=== PATIENT | male | born 1955 | race Caucasian/White ===

== ENCOUNTER 2018-07-10 07:03 | Observation (INO) | payer OTHER ==
[2018-07-10] MEDS ORDERED: FAMOTIDINE 20 MG TAB PO ONE (07:07)
[2018-07-10] MEDS ORDERED: NS 1,000 ML IV ONE (07:07)
[2018-07-10] MEDS ORDERED: DIAZEPAM 5 MG TAB PO ONE (07:07)
[2018-07-10] MEDS ORDERED: ASPIRIN EC 325 MG TAB PO ONE (07:07)
[2018-07-10] MEDS ORDERED: diphenhydrAMINE 25 MG CAP PO ONE (07:07)
[2018-07-10 07:45] LABS: PLATELET COUNT 276 10^3/uL (150-400)
[2018-07-10 07:53] LABS: INR 0.98 (0.83-1.16); PROTIME(PATIENT) 13.2 SEC (12.0-15.0)
--- NOTE | 2018-07-10 10:28 | CPEKG ---
Test Reason : OPEN Blood Pressure : / mmHG Vent. Rate : 051 BPM Atrial Rate : 052 BPM P-R Int : 184 ms QRS Dur : 100 ms QT Int : 441 ms P-R-T Axes : 024 022 017 degrees QTc Int : 407 ms Sinus rhythm Confirmed by Rojelio Handy ([id number]) on 07/10/2018 10:27:22 AM Referred By: Confirmed By:Rojelio Handy
[2018-07-10] MEDS ORDERED: fentaNYL 100 MCG/2 ML INJ ONE ×2 (11:40→12:48)
[2018-07-10] MEDS ORDERED: LIDOCAINE 1% 300 MG/30 ML SDV ONE (11:40)
[2018-07-10] MEDS ORDERED: MIDAZOLAM 2 MG/2 ML VIAL ONE ×2 (11:41→12:48)
[2018-07-10] MEDS ORDERED: IOPAMIDOL (ISOVUE-370) 150 ML BTL IV ONE (11:41)
--- NOTE | 2018-07-10 12:01 | PDHPUP ---
History & Physical Update H&P update statement: This history and physical update is based on an assessment of the patient which was completed after admission or registration (within 24 hours), but prior to the surgery/procedure. H&P update: H&P reviewed & patient examined, no change in patient's condition since H&P completed
--- NOTE | 2018-07-10 12:01 | PDPROPOC ---
Sedation Plan of Care Sedation Plan of Care: vital signs stable, mental status noted, patient educated of risks, benefits, alternatives, patient can tolerate sedation ASA Classification: ASA 2 Planned drugs: fentanyl, midazolam Mallampati Score: Class 2 Mallampati Reference Image: Patient passed 3-3-2 rule?: Yes
[2018-07-10] MEDS ORDERED: BIVALIRUDIN 250 MG/5 ML VIAL IV ONE (12:24)
[2018-07-10] MEDS ORDERED: ATROPINE SULFATE 1 MG/10 ML SYR ONE (13:00)
--- NOTE | 2018-07-10 13:10 | PDDXCAT ---
Diagnostic Cath Note - . Date: 07/10/18 Neurocritical Care Physician: Kit Indication: other (intermediate risk stress test) - Procedure Access: right groin Procedure: coronary angiography - Materials Left Heart Cath size: 6F Left Heart Cath materials: JL4.0, JR4.0 - Findings-Left Heart Catheterization LCX: The circumflex is 2.75mm in size. There is an 80% stenosis in the mid portion of the vessel. RCA: The right coronary artery is 3.5mm in size and dominant vessel. There is 70 % stenosis in the mid section of the vessel. Complications: NONE Estimated blood loss: <50ml Closure method: Angioseal Assessment: The patient had an angiogram performed by Dr. Mullen and was found to have a 70% lesion in his right coronary artery and a 80% stenosis in the mid circumflex. Plan: Aspirin 81mg along with Plavix 75mg daily should be continued for at least 1 year following drug eluting stent implantation. No elective surgery for the first 3 months. Decisions to stop dual antiplatelet therapy before 1 year should involve our office at [facility] phone [phone]. Intervention: A 6 [place] JL4 guiding catheter was used for guide catheter support. A 0.014" 185 cm Intuition Wire was advanced across the lesion in question under direct fluoroscopic and angiographic guidance. A 3.0 x 12mm Emerge balloon was advanced over the lesion in the proximal RCA and was stented with a 3.5 x 28mm Synergy drug eluting stent using a 6 [place] guide liner catheter. There was 10% residual post stent implantation with SAMI III flow. There was an 80% stenosis of the mid circumflex was stented with a 2.75 x 16mm Synergy drug eluting stent. There was 5% residual stenosis post stent implantation with SAMI III flow.
[2018-07-10] MEDS ORDERED: PRASUGREL HCL 10 MG TAB ONE (13:32)
[2018-07-10] MEDS ORDERED: NITROGLYCERIN 0.4 MG BTL SL PRN (13:46)
[2018-07-10] MEDS ORDERED: ATROPINE SULFATE 1 MG/10 ML SYR IVP PRN (13:46)
[2018-07-10] MEDS ORDERED: LORazepam 2 MG/ML INJ IVP PRN (13:46)
[2018-07-10] MEDS ORDERED: ONDANSETRON 4 MG/2 ML VIAL IVP PRN (13:46)
[2018-07-10] MEDS ORDERED: HYDROCODONE/APAP 5/325 TAB PO PRN (13:46)
[2018-07-10] MEDS ORDERED: TEMAZEPAM 15 MG CAP PO PRN (13:46)
[2018-07-10] MEDS ORDERED: OXYCODONE/APAP 5/325 TAB PO PRN (13:46)
[2018-07-10] MEDS ORDERED: PRASUGREL HCL 10 MG TAB PO ONE (13:46)
[2018-07-10] MEDS ORDERED: NS 1,000 ML IV SCH (14:00)
[2018-07-10] MEDS ORDERED: OXYCODONE/APAP 5/325 TAB PO ONE (15:30)
[2018-07-10] MEDS ORDERED: IOPAMIDOL (ISOVUE 370) 100 ML BTL IV ONE (16:18)
[2018-07-11 07:42] VITALS: BP 111/71
[2018-07-11] MEDS ORDERED: ASPIRIN EC 325 MG TAB PO SCH (09:00)
[2018-07-11] MEDS ORDERED: PRASUGREL HCL 10 MG TAB PO SCH (09:00)
[2018-07-11 09:32] LABS: PLATELET COUNT 210 10^3/uL (150-400)
--- NOTE | 2018-07-11 10:16 | ASMTDCNOTE ---
Case Management Discharge Discharge Order Complete? Answers: Yes Patient to Obtain Answers: via Family Medications Transportation Arranged Answers: Family/Friends Discharge Comments Notes: CM spoke with RN. Pt being discharged independently. No CM needs identified. Date Signed: 07/11/2018 10:15 AM Electronically Signed By:TESFAYE Carney
--- NOTE | 2018-07-11 10:19 | ASDISCHSUM ---
Discharge Information Plan Status:Home with No Needs Medically Cleared to Leave:07/10/2018 Discharge Date:07/10/2018 CM D/C Disposition:Home, Routine, Self-Care ADT D/C Disposition:Home, Routine, Self-Care Projected Discharge Date:07/11/2018 12:00 AM Transportation at D/C: Discharge Delay Reason: Follow-Up Date:07/11/2018 12:00 AM Discharge Slot:1 - 8:01 am - 12:00 noon Final Diagnosis: Placement Information Patient Contact Information Contact Name:CUONG Relationship: Address:[address] City:[place] Alternate Phone: [facility]/Zip Code:[place] [address] Email: Financial Information Financial Class:HMO and PPO Plans Primary Plan Desc:[facility] PPO POS Primary Plan Number:[id number] Secondary Plan Desc: Secondary Plan Number: Assessment Information Case Management Discharge Plan Note Case Management Discharge Discharge Order Complete? Answers: Yes Patient to Obtain Answers: via Family Medications Transportation Arranged Answers: Family/Friends Discharge Comments Notes: CM spoke with RN. Pt being discharged independently. No CM needs identified. Date Signed: 07/11/2018 10:15 AM Electronically Signed By:TESFAYE Carney LACE ARNULFO Length of stay for Answers: 1 day current admission Acuity / Level of Answers: Yes Care: Did the patient have an inpatient admission? Comorbidities - select Answers: Coronary Artery Disease all that apply # of Emergency department Answers: 0 visits in the last 6 months Score: 6 Date Signed: 07/11/2018 10:19 AM Electronically Signed By:TESFAYE Carney Intervention Information
--- NOTE | 2018-07-11 12:08 | GDS ---
DISCHARGE DIAGNOSES: 1. Coronary artery disease, status post stenting to the right coronary artery with a 3.5 x 28 mm Syn ergy drug-eluting stent. 2. Stenting to the mid left circumflex with a 2.75 x 16 mm Synergy drug-eluting stent. 3. History of stenting to the left anterior descending artery in 2007, with 3 overlapping stents. 4. Hyperlipidemia. 5. Hypertension. HOSPITAL COURSE: For a detailed H and P, please see prior dictation. Briefly, the patient is a 62-y ear-old male with a history of coronary artery disease, status post stenting to the left anterior mahi cending artery in 2007. He had a nuclear stress test, which showed a moderate inferior defect. Prio r to his stenting in 2007, he was asymptomatic, and therefore, the decision was made to proceed with angiogram. This was performed by Dr. Kareem Mullen on 07/10/2018. He was found to have an 80% stenosi s within the mid left circumflex, which was stented with a 2.75 x 16 mm Synergy drug-eluting stent. The right coronary artery had a 70% stenosis within the mid section, which was also stented with a 3. 5 x 28 mm Synergy drug-eluting stent. Post procedure, there was concern for retroperitoneal bleed, a nd therefore, the patient had an abdominal CT with contrast. He was found to have a moderate-sized h ematoma, as well as a pooling of contrast on the delay phase, which represented a slow ooze from the associated vessel. It was recommended that the patient have manual compression to stop the bleed. T he following morning, the patient denied any significant discomfort of his right groin. He initially had a drop in his H and H, but it remained stable from yesterday evening until this morning. His he moglobin is currently 13.2, hematocrit 39.8. He denies any chest pain or shortness of breath. His E KG the day of discharge shows a normal sinus rhythm with inferior T-wave flattening. He was monitore d on telemetry and remained in normal sinus rhythm with PVCs. PHYSICAL EXAMINATION: GENERAL: Patient appears in no acute distress. VITALS: Blood pressure 111/7 1, heart rate 60, oxygen saturation 95% on room air, afebrile. LUNGS: Clear to auscultation. No wh eezes, rhonchi, or crackles auscultated. CARDIAC: Regular rate and rhythm, without any murmurs, rub s, or gallops appreciated. EXTREMITIES: His right groin, where access was obtained for the angiogra m, is clean and intact, without any evidence of infection or hematoma. It is soft to touch. He does have some mild discomfort with palpation of the groin site. His distal extremity has 2+ pulses. DISCHARGE MEDICATIONS: Plavix has been discontinued. He will begin Effient 10 mg daily, aspirin 325 mg daily. He will continue Crestor 40 mg daily, Tricor 145 mg daily, and fish oil 1000 mg daily. PLAN: The patient is currently stable and ready for discharge home. He has been given groin precaut ions. He is aware that he is to remain on aspirin and Effient for a minimum of 1 year. He will foll ow up as scheduled at [facility] on July 17 at 3:[address] Mullen. /[id number]/MODL
--- NOTE | 2018-07-11 12:58 | CPEKG ---
Test Reason : OPEN Blood Pressure : / mmHG Vent. Rate : 050 BPM Atrial Rate : 052 BPM P-R Int : 200 ms QRS Dur : 101 ms QT Int : 468 ms P-R-T Axes : 032 028 014 degrees QTc Int : 427 ms Sinus rhythm Ventricular premature complex Confirmed by Rojelio Handy ([id number]) on 07/11/2018 12:58:16 PM Referred By: Confirmed By:Rojelio Handy
--- NOTE | 2018-07-11 13:00 | CPEKG ---
Test Reason : OPEN Blood Pressure : / mmHG Vent. Rate : 054 BPM Atrial Rate : 053 BPM P-R Int : 187 ms QRS Dur : 101 ms QT Int : 436 ms P-R-T Axes : 027 011 019 degrees QTc Int : 414 ms Sinus rhythm Confirmed by Rojelio Handy ([id number]) on 07/11/2018 12:59:40 PM Referred By: Confirmed By:Rojelio Handy
== END 2018-07-11 12:35 | disposition home or self-care (01) ==
LOC: FCATH 07:03 → F2W 18:35
PROVIDERS: ADMIT Internal Medicine Cardiovascular Disease; ATTEND Internal Medicine Cardiovascular Disease
DX: I25.10 Atherosclerotic heart disease of native coronary artery without angina pectoris (principal); M96.841 Postprocedural hematoma of a musculoskeletal structure following other procedure; Z95.5 Presence of coronary angioplasty implant and graft; E78.5 Hyperlipidemia, unspecified; I10 Essential (primary) hypertension
CPT/HCPCS: 74174; 92928; 93005; 93458; C1725; C1769; C1887; G0378; C1874; C9600; J0461; J0583; J1644; J2250; J2270; J2405; J3010; Q9967